=== PATIENT | female | born 1960 | race Caucasian/White ===

== ENCOUNTER 2022-08-14 19:14 | Emergency (ER) | payer MEDICAID ==
[~2022-08-14] VITALS: Ht 157.5 cm; Wt 74.8 kg
[2022-08-14 19:30] VITALS: BP_SYST 195
--- NOTE | 2022-08-14 19:35 | NUR ---
Placed in room 1 . Placed on community health promoter, blood pressure machine and pulse oximeter. To gown for exam. Side rails up. Report given to Lakshmi CLINTON.
--- NOTE | 2022-08-14 19:40 | NUR ---
Pt from home with c/o of headache and dizziness that started this morning. Pt reports non medical hx, BP is 192/95. made aware. Pt A&O X4, ambulatory and following commands.
--- NOTE | 2022-08-14 19:48 | NUR ---
Pt to CT via wheelchair accompanied by staff.
--- NOTE | 2022-08-14 20:00 | NUR ---
Pt back from CT via wheelchair accompanied by staff.
[2022-08-14] MEDS ORDERED: MECLIZINE HCL 25 MG TABLET (ANITVERT) PO ONE (20:15)
[2022-08-14] MEDS ORDERED: METOCLOPRAMIDE HCL 10 MG/2 ML VIAL IVP ONE (20:15)
[2022-08-14 20:24] LABS: BASOPHILS % (AUTO) 0.6 % (0.0-2.0); EOSINOPHILS % (AUTO) 0.4 % (0.0-4.0); HEMATOCRIT 41.6 % (36-48); LYMPHOCYTES # (AUTO) 1.8 K/uL (1.0-5.5); MEAN CORPUSCULAR VOLUME 86 fL (79.0-98.0); MONOCYTES # (AUTO) 0.3 K/uL (0.0-1.0); MONOCYTES % (AUTO) 4.2 % (1.7-9.3); NEUTROPHILS # (AUTO) 4.6 K/uL (1.8-7.7); NEUTROPHILS % (AUTO) 68.8 % (40.0-70.0); PLATELET COUNT (AUTO) 193 K/uL (130-430); RED BLOOD CELL COUNT(AUTO) 4.87 MIL/uL (4.2-6.2); RED CELL DISTRIBUTION WIDTH 14.2 % (9.0-15.0); WHITE BLOOD COUNT (AUTO) 6.7 K/uL (4.8-10.8)
[2022-08-14 20:37] LABS: ANION GAP 8 (5-15); CALCIUM 8.9 mg/dL (8.4-11.0); CHLORIDE 104 mmol/L (98-107); CREATININE 0.88 mg/dL (0.55-1.30); GLUCOSE 223 mg/dL (70-99); POTASSIUM 3.2 mmol/L (3.5-5.1); UREA NITROGEN, BLOOD 8 mg/dL (8-21)
[2022-08-14 20:38] LABS: GFR AFRICAN AMERICAN 84 mL/min (>90)
[2022-08-14 20:49] LABS: ALANINE AMINOTRANSFERASE 161 U/L (12-78); ALBUMIN 3.7 g/dL (3.4-4.8); ASPARTATE AMINOTRANSFERASE 205 U/L (10-37); TOTAL BILIRUBIN 1.4 mg/dL (0.0-1.0)
--- NOTE | 2022-08-14 20:55 | NUR ---
Pt ambulated to restroom with assistance. Pt now resting in bed. Stated "I feel better than I did before." Safety precautions in place and connected to monitor.
[2022-08-14] MEDS ORDERED: MECL-261 PO (20:59)
--- NOTE | 2022-08-14 21:50 | NUR ---
MD made aware of BP of 202/104 and headache that pt is reporting. Orders rec.
[2022-08-14] MEDS ORDERED: LABETALOL HCL 20 MG/4 ML CARTRIDGE IVP ONE (22:00)
[2022-08-14] MEDS ORDERED: PROCHLORPERAZINE EDISYLATE 10 MG/2 ML VIAL IVP ONE (22:00)
[2022-08-14] MEDS ORDERED: MORPHINE 2 MG/ML INJ. SYRINGE IVP ONE (22:00)
[2022-08-14] MEDS ORDERED: LISI2.5T48 PO (22:30)
[2022-08-14 22:53] VITALS: BP_SYST 163
--- NOTE | 2022-08-14 22:53 | NUR ---
Patient given written and verbal discharge instructions and verbalizes understanding. ER Dr. Strickland discussed with patient the results and treatment provided. Patient in stable condition. ID arm band removed. IV catheter removed intact and dressing applied, no active bleeding. Rx of lisinopril and meclizine given. Patient educated on pain management and to follow up with PMD. Pain Scale 0. Opportunity for questions provided and answered. Medication side effect fact sheet provided.
== END 2022-08-14 22:53 | disposition home or self-care (01) ==
LOC: SED 19:14
DX: R42 Dizziness and giddiness (principal); R11.2 Nausea with vomiting, unspecified; R51.9 Headache, unspecified; I10 Essential (primary) hypertension; Z79.899 Other long term (current) drug therapy
CPT/HCPCS: 99285; 96374; 96375; 70450; 71045; 80053; 82962; 85025; 84484; 36415; 93005; 76376; J8597; J2765; J0780; J2270